=== PATIENT | female | born 1990 | race American Indian/Alaskan Native ===

== ENCOUNTER 2019-08-02 15:50 | Inpatient (IN) | payer SELFPAY ==
[2019-08-02 17:38] LABS: Basophils % (Auto) 0.3 % (0.0-1.8); Eosinophils % (Auto) 0.3 % (0.0-4.3); Hematocrit 32.7 % (30.3-42.9); Hemoglobin 11.2 gm/dl (10.1-14.3); Lymphocytes # (Auto) 1.5 K/mm3 (1.2-5.4); Lymphocytes % (Auto) 15.4 % (13.4-35.0); Mean Corpuscular HGB Conc 34 % (30-34); Mean Corpuscular Volume 88 fl (79-97); Monocytes % (Auto) 10.4 % (0.0-7.3); Platelet Count 202 K/mm3 (140-440); Red Blood Count 3.71 M/mm3 (3.65-5.03); Red Cell Distribution Width 13.7 % (13.2-15.2)
--- NOTE | 2019-08-02 19:28 | Ultrasound Report ---
Obstetric ultrasound limited INDICATION: Pelvic pain and TECHNIQUE: Grayscale and Doppler imaging obtained through the limited IMPRESSION: RAMÓN measures 9.0 cm. Single living intrauterine in a cephalic position. h eart rate is 145 bpm Signer Name: Sathish Cristina MD Signed: 08/02/2019 7:23 PM Workstation Name: [id number]
[2019-08-02] MEDS ORDERED: LACTATED RINGERS 1,000 ML ONE (19:33)
[2019-08-02] MEDS ORDERED: BRETHINE IVP PRN (20:33)
[2019-08-02] MEDS ORDERED: MINERAL OIL PO PRN (20:33)
[2019-08-02] MEDS ORDERED: XYLOCAINE 2% INFILTRATI ONE (20:33)
[2019-08-02] MEDS ORDERED: NARCAN 0.4 MG/1 ML IV PRN (20:33)
[2019-08-02] MEDS ORDERED: SUBLIMAZE IV PRN (20:33)
[2019-08-02] MEDS ORDERED: STADOL IV PRN (20:33)
[2019-08-02] MEDS ORDERED: AMPICILLIN/NS 2 GM/100 ML 2 GM/100 ML BAG IV ONE (20:33)
[2019-08-02] MEDS ORDERED: BRETHINE SUB-Q PRN (20:33)
[2019-08-02] MEDS ORDERED: ZOFRAN IV PRN (20:33)
[2019-08-02] MEDS ORDERED: PITOCin/NS 20 UNIT/1000ML DRIP 20 UNITS/1,000 ML BAG IV SCH (21:00)
[2019-08-02] MEDS: LACTATED RINGERS 1,000 ML IV SCH (21:08)
[2019-08-02] MEDS ORDERED: PITOCin/NS 30 UNIT/500ML 30 UNITS/500 ML BAG IV SCH (22:59)
--- NOTE | 2019-08-02 23:22 | History and Physical Report ---
History of Present Illness Date of examination: 08/02/19 Date of admission: 08/02/19 15:56 Chief complaint: Pt is a 28 year ZEKE 08/03/19 at 39w6d presents with rupture of membranes at 1530 pm- clear. She reports irregular contractions and denies vaginal bleeding. She has had care at [facility] since 28 wks complicated by late entry to care, Hepatitis B surface antigen positive s/p ID consult. She is GBS negative. Past History Past Medical History: other (Hep B Surface Antigen Positive ) Past Surgical History: no surgical history [employer] History: hepatitis B (per HPI ) Social history: no significant social history - Obstetrical History Expected Date of Delivery: 08/03/19 Actual Gestation: 40 Week(s) 0 Day(s) : 3 Para: 2 Hx # Term Pregnancies: 2 Number of Pregnancies: 0 Spontaneous Abortions: 0 Induced : 0 Number of Living Children: 2 Medications and Allergies Allergies Allergy/AdvReac Type Severity Reaction Status Date / Time No Known Allergies Allergy Verified 08/02/19 19:32 Active Meds: Active Medications Butorphanol Tartrate (Stadol) 2 mg IV Q2H PRN PRN Reason: Pain , Severe (7-10) Ephedrine Sulfate (Ephedrine Sulfate) 10 mg IV Q2M PRN PRN Reason: Hypotension Fentanyl (Sublimaze) 100 mcg IV Q2H PRN PRN Reason: Labor Pain Oxytocin/Sodium Chloride (Pitocin/Ns 20 Unit/1000ml Drip) 20 units in 1,000 mls @ 125 mls/hr IV DIRECT MATTHIAS Lactated Ringer's (Lactated Ringers) 1,000 mls @ 125 mls/hr IV DIRECT MATTHIAS Last Admin: 08/02/19 21:08 Dose: 125 mls/hr Documented by: Ampicillin Sodium (Ampicillin/Ns 1 Gm/50 Ml) 1 gm in 50 mls @ 100 mls/hr IV Q4HR MATTHIAS; Protocol Oxytocin/Sodium Chloride (Pitocin/Ns 30 Unit/500ml) 30 units in 500 mls @ 2 mls/hr IV TITR MATTHIAS; Protocol Last Admin: 08/02/19 22:50 Dose: 4 ml/hr, 4 mls/hr Documented by: Mineral Oil (Mineral Oil) 30 ml PO QHS PRN PRN Reason: Constipation Naloxone HCl (Narcan 0.4 Mg/1 Ml) 0.1 mg IV Q2MIN PRN PRN Reason: Res Rate </= 8 or 02 SAT < 92% Ondansetron HCl (Zofran) 4 mg IV Q8H PRN PRN Reason: Nausea And Vomiting Terbutaline Sulfate (Brethine) 0.25 mg SUB-Q ONCE PRN PRN Reason: Hyperstimulation/Hypertonicity Terbutaline Sulfate (Brethine) 0.25 mg IVP ONCE PRN PRN Reason: Hyperstimulation/Hypertonicity Review of Systems All systems: negative - Vital Signs Vital signs: Vital Signs Temp Pulse Resp BP Pulse Ox 97.9 F 125 H 20 132/81 99 08/02/19 16:08 08/02/19 16:08 08/02/19 16:08 08/02/19 16:08 08/02/19 16:08 Temp Pulse Resp BP Pulse Ox 97.9 F 104 H 20 140/73 99 08/02/19 16:08 08/02/19 19:44 08/02/19 16:08 08/02/19 19:44 08/02/19 16:22 - Physical Exam Breasts: Positive: deferred Cardiovascular: Regular rate Lungs: Positive: Clear to auscultation Abdomen: Positive: soft (gravid ) Uterus: Positive: enlarged (gravid ) Extremities: Positive: normal - Obstetrical FHR: auscultation normal Uterine Contraction Monitor Mode: External Cervical Dilatation: 4.5 (per RN ) Uterine Contraction Pattern: Irregular Uterine Tone Measurement Phase: Resting Uterine Contraction Intensity: Moderate Results Result Diagrams: 08/02/19 17:17 Abnormal lab results 08/02/19 Range/Units 17:17 Antelope % (Auto) 10.4 H (0.0-7.3) % Antelope # 1.0 H (0.0-0.8) K/mm3 Seg Neutrophils % 73.6 H (40.0-70.0) % All other labs normal. Assessment and Plan A: IUP at 39w6d SROM Latent labor Hep B Surface Antigen positive GBS negative P: Admit to labor and delivery Routine intrapartum care Avoid scalp electrode if possible Closely monitor maternal and status
[2019-08-03] MEDS ORDERED: PITOCin/NS 30 UNIT/500ML 30 UNITS/500 ML BAG IV SCH
[2019-08-03] MEDS ORDERED: AMPICILLIN/NS 1 GM/50 ML 1 GM/50 ML BAG IV SCH (00:36)
[2019-08-03] MEDS: LACTATED RINGERS 1,000 ML IV SCH (08:51)
[2019-08-03] MEDS ORDERED: AMPICILLIN/NS 2 GM/100 ML 2 GM/100 ML BAG IV SCH (09:00)
--- NOTE | 2019-08-03 09:53 | Event Note ---
Date: 08/03/19 Pt very uncomfortable with contractions. SVE: /-1. Category II tracing. Routine intrapartum care. Closely monitor maternal and status.
[2019-08-03] MEDS ORDERED: XYLOCAINE 2% INFILTRATI ONE ×3 (11:03→11:41)
[2019-08-03] MEDS ORDERED: CYTOTEC ONE (11:10)
[2019-08-03] MEDS ORDERED: METHERGINE IM ONE ×2 (11:10→11:30)
--- NOTE | 2019-08-03 12:04 | Procedure Note ---
OB Delivery Note - Delivery Date of Delivery: 08/03/19 Surgeon: MOUNA DE LA ROSA Estimated blood loss: 500cc - Vaginal Delivery presentation: vertex Delivery position: OA Intrapartum events: PROM->1hr before delivery, meconium, decreased FHT variability, shoulder dystocia, uterine atony Delivery induction: oxytocin Delivery augmentation: pitocin Delivery monitor: external FHT, external uterine Route of delivery: Delivery placenta: spontaneous Delivery cord: 3 umbilical vessels Episiotomy: none Delivery laceration: 2nd degree Delivery repair: vicryl Anesthesia: local Delivery comments: Pt progressed to complete/complete/+2 and pushed to deliver a viable female over intact perineum under IV anesthesia via spontaneous vaginal delivery. Head delivered in CHERYL position. Twenty second shoulder dystocia relieved by Peng position and suprapublic pressure. Shoulders then delivered followed by the remainder of the body. Terminal meconium. placed on maternal abdomen. Cord clamped and cut and handed to NICU in attendance. Cord blood collected. Placenta delivered spontaneously (3VC, intact). Uterus noted to be atonic despite Pitocin infusing. Methergine 0.2 mg IM administered. Uterine tone improved. Vagina and perineum explored. Deep second degree laceration repaired with 3-0 and 2-0 Vicryl in a standard fashion. EBL 500mL. Bladder drained of 300 mL of clear urine at the end of the procedure. - Infant A at 1 minute: 8 at 5 minutes: 9 Infant Gender: Female (3798g (8lb 6oz) @ 1121 am)
[2019-08-03] MEDS ORDERED: SODIUM CHLORIDE FLUSH SYRINGE 10 ML IV NR (14:11)
[2019-08-03] MEDS ORDERED: DERMOPLAST TP PRN (14:11)
[2019-08-03] MEDS ORDERED: PHENERGAN PR PRN (14:11)
[2019-08-03] MEDS ORDERED: LANSINOH TP PRN ×2 (14:11)
[2019-08-03] MEDS ORDERED: NORCO 5/325 PO PRN (14:11)
[2019-08-03] MEDS ORDERED: TYLENOL PO PRN (14:11)
[2019-08-03] MEDS ORDERED: ZOFRAN IV PRN (14:11)
[2019-08-03] MEDS ORDERED: BENADRYL PO PRN (14:11)
[2019-08-03] MEDS ORDERED: TUCKS PAD TP PRN (14:11)
[2019-08-03] MEDS ORDERED: DULCOLAX PR PRN (14:11)
[2019-08-03] MEDS ORDERED: PITOCin/NS 20 UNIT/1000ML DRIP 20 UNITS/1,000 ML BAG IV SCH (14:11)
[2019-08-03] MEDS ORDERED: PHENERGAN PO PRN (14:11)
[2019-08-03] MEDS: IBUPROFEN PO SCH ×2 (16:05→23:28)
[2019-08-03] MEDS ORDERED: MILK OF MAGNESIA PO PRN (22:00)
[2019-08-03] MEDS: FEOSOL PO SCH (23:28)
[2019-08-03] MEDS: COLACE PO SCH (23:28)
[2019-08-04] MEDS: IBUPROFEN PO SCH ×3 (05:49→17:55)
[2019-08-04 07:11] LABS: Hematocrit 28.5 % (30.3-42.9); Hemoglobin 9.6 gm/dl (10.1-14.3)
--- NOTE | 2019-08-04 08:07 | Progress Note ---
Assessment and Plan A/P PPD1 s/p Hep B alert peds ID consult routine PP care Subjective - Subjective Date of service: 08/04/19 Principal diagnosis: s/p Patient reports: appetite normal, voiding normally, pain well controlled, flat us, ambulating normally Dix: doing well Objective - Vital Signs Latest vital signs: Vital Signs Temp Pulse Resp BP BP Pulse Ox 08/04/19 05:49 18 08/04/19 00:28 18 08/04/19 00:00 98.3 F 93 H 18 128/82 100 08/03/19 23:28 18 08/03/19 18:44 18 08/03/19 18:31 98.5 F 89 18 100 08/03/19 17:11 99.8 F H 107 H 18 135/78 98 08/03/19 13:55 99.7 F H 84 18 136/75 100 08/03/19 12:14 98 H 130/60 08/03/19 11:52 107 H 134/77 08/03/19 11:37 102 H 120/56 08/03/19 11:25 113 H 132/59 08/03/19 09:13 114 H 98 08/03/19 09:08 98 H 98 08/03/19 09:03 106 H 98 08/03/19 09:02 98.1 F 107 H 22 141/86 141/86 99 Intake and Output 08/03/19 08/04/19 08/04/19 23:59 07:59 15:59 Intake Total 240 Balance 240 Intake: Oral 240 Other: Total, Intake Amount 240 # Voids Void 1 - Exam Breasts: Present: normal Cardiovascular: Present: Regular rate, Normal S1 Lungs: Present: Clear to auscultation, Normal air movement Abdomen: Present: normal appearance, soft, normal bowel sounds. Absent: dis tention, tenderness, guarding Uterus: Present: normal, firm, fundal height below umbilicus. Absent: bogginess, tenderness Extremities: Present: normal Deep Tendon Reflex Grade: Normal +2 - Labs Labs: Abnormal lab results 08/04/19 Range/Units 06:45 Hgb 9.6 L (10.1-14.3) gm/dl Hct 28.5 L (30.3-42.9) %
[2019-08-04] MEDS: FEOSOL PO SCH ×2 (09:51→22:04)
[2019-08-04] MEDS: COLACE PO SCH ×2 (09:51→22:04)
--- NOTE | 2019-08-04 11:00 | Consultation ---
History of Present Illness - Reason for Consult Consult date: 08/04/19 - History of Present Illness 28 yo F presented at term with rupture of membranes and contractions. Her only care began at 28 weeks and as such had late entry to care. She was GBS negative on arrival. She was otherwise asymptomatic on arrival aside from delivery-related contractions. Denied abdominal pain otherwise. No history of liver issues. She delivered a healthy female baby on 08/03. Afebrile since admission, previously received 8 doses of ampicillin. Hepatitis B surface antigen is positive, other hepatitis labs not yet obtained. Unclear if STIs previously tested given late presentation to pre- care. Received TDaP and MMR dose 1. No cultures obtained for review. Imaging personally reviewed: None obtained. Review of Systems: Bold if positive, otherwise negative General: fevers, chills, rigors HEENT: visual disturbance, diplopia, eye pain Respiratory: cough, sputum, hemoptysis, shortness of breath Cardiovascular: chest pain, syncope Gastrointestinal: nausea, vomiting, diarrhea, abdominal pain Genitourinary: dysuria, hematuria, flank pain Musculoskeletal: neck pain, back pain, joint pain, edema Neurologic: headaches, seizures Hematologic: easy bruising or bleeding Endocrine: night sweats, acute weight loss Skin: rash, jaundice, redness Psychiatric: suicidal, homicidal ideation Past History Past Medical History: No medical history Past Surgical History: No surgical history Social history: no significant social history. denies: smoking, alcohol abuse Family history: no significant family history Medications and Allergies Allergies Allergy/AdvReac Type Severity Reaction Status Date / Time No Known Allergies Allergy Verified 08/02/19 19:32 Home Medications Medication Instructions Recorded Confirmed Last Taken Type Docusate Sodium [Colace] 100 mg PO BID PRN #60 capsule 08/03/19 Unknown Rx Ferrous Sulfate [Feosol 325 MG tab] 325 mg PO BID #60 tablet 08/03/19 Unknown Rx HYDROcodone/APAP 5-325 [Sumner 1 each PO Q6HR PRN #20 tablet 08/03/19 Unknown Rx 5/325] Ibuprofen [Motrin] 800 mg PO Q8HR PRN #30 tablet 08/03/19 Unknown Rx Vitamin 1 tab PO DAILY 08/03/19 08/03/19 2 Days Ago History ~08/01/19 Active Meds: Active Medications Acetaminophen (Tylenol) 650 mg PO Q4H PRN PRN Reason: Pain MILD(1-3)/Fever >100.5/JAY Last Admin: 08/03/19 17:44 Dose: 650 mg Documented by: Acetaminophen/Hydrocodone Bitart (Sumner 5/325) 2 each PO Q6H PRN PRN Reason: Pain, Moderate (4-6) Benzocaine/Menthol (Dermoplast) 1 spray TP PRN PRN PRN Reason: Pain, Moderate (4-6) Last Admin: 08/03/19 17:07 Dose: 1 spray Documented by: Bisacodyl (Dulcolax) 10 mg IN BID PRN PRN Reason: Constipation Diphenhydramine HCl (Benadryl) 25 mg PO Q6H PRN PRN Reason: Itching Diphtheria/Tetanus/Acell Pertussis (Boostrix) 0.5 ml IM .ONCE ONE Stop: 08/04/19 12:05 Docusate Sodium (Colace) 100 mg PO BID [facility] Last Admin: 08/04/19 09:51 Dose: 100 mg Documented by: Ferrous Sulfate (Feosol) 325 mg PO BID [facility] Last Admin: 08/04/19 09:51 Dose: 325 mg Documented by: Oxytocin/Sodium Chloride (Pitocin/Ns 20 Unit/1000ml Drip) 20 units in 1,000 mls @ 250 mls/hr IV DIRECT [facility] Ibuprofen (Ibuprofen) 600 mg PO Q6H [facility] Last Admin: 08/04/19 05:49 Dose: 600 mg Documented by: Magnesium Hydroxide (Milk Of Magnesia) 30 ml PO HS PRN PRN Reason: Constipation Measles/Mumps/Rubella Vaccine Live (M-M-R Ii Vaccine) 0.5 ml SUB-Q .ONCE ONE Stop: 08/04/19 12:05 Multi-Ingredient Ointment (Lansinoh) 1 applic TP PRN PRN PRN Reason: dryness/cracking Ondansetron HCl (Zofran) 4 mg IV Q8H PRN PRN Reason: Nausea And Vomiting Promethazine HCl (Phenergan) 25 mg IN Q6H PRN PRN Reason: Nausea And Vomiting Promethazine HCl (Phenergan) 25 mg PO Q6H PRN PRN Reason: Nausea And Vomiting Witch Claudette/Glycerin (Tucks Pad) 1 each TP PRN PRN PRN Reason: Hemorrhoid/cleansing/soothing Last Admin: 08/03/19 17:07 Dose: 1 each Documented by: Physical Examination - Physical Exam Narrative exam: Physical Exam: Constitutional: Alert, cooperative. No acute distress, lying in bed with baby. Head, Ears, Nose: Normocephalic, atraumatic. External ears, nose normal Eyes: Conjunctivae/corneas clear. No icterus. No ptosis. Neck: Supple, no meningeal signs Oral: dentition fair, no thrush Cardiovascular: S1, S2 normal. Respiratory: Good air entry, clear to auscultation bilaterally GI: Soft, non-tender; bowel sounds normal. No peritoneal signs. Musculoskeletal: No pedal edema, no cyanosis. Skin: No rash or abscess Hem/Lymphatic: No palpable cervical or supraclavicular nodes. No lymphangitis Psych: Mood ok. Affect normal Neurological: Awake, alert, oriented. No gross abnormality - Constitutional Vitals: Vital Signs Temp Pulse Resp BP Pulse Ox 98.5 F 87 20 116/71 100 08/04/19 08:12 08/04/19 08:12 08/04/19 08:12 08/04/19 08:12 08/04/19 08:12 Temperature -Last 24 Hours Temperature 98.5 F Temperature 98.3 F Temperature 98.5 F Temperature 99.8 F Temperature 99.7 F Results - Labs CBC & Chem 7: 08/04/19 06:45 Labs: Abnormal lab results 08/04/19 Range/Units 06:45 Hgb 9.6 L (10.1-14.3) gm/dl Hct 28.5 L (30.3-42.9) % Assessment and Plan Cultures: None A/P: 28 yo F presented at term with rupture of membranes and contractions, found to have Hep B surface antigen + 1. Hepatitis B - unclear chronicity/activity so far. I have ordered a battery of complimentary hepatitis tests in order to determine whether or not she requires treatment. TDF is generally considered safe in , but whether or not it is best to start now or later will depend on liver function results and hepatitis B DNA results. I will also evaluate for hep A and C. Ordered testing for HIV and other STIs as sexual activity is likely how she contracted the hep B in the first place. If not already done, baby should receive HBIg as well. Recs: - ordered HIV - Ordered urine G&C - ordered hepatitis A, C serologies - ordered Hep B DNA - ordered HepBe Ag - These tests will likely take some time prior to returning. No barrier to discharge from ID perspective - will discuss treatment at outpatient office follow up. - baby should receive HBIg if not done already - routine shaheed- hep B vaccinations should be performed. Thank you for the consult, we will continue to follow. MD Michelle Randhawa [facility] M: [phone] O: [phone] F: [phone]
[2019-08-04] MEDS ORDERED: M-M-R II VACCINE SUB-Q ONE (12:04)
[2019-08-04] MEDS ORDERED: BOOSTRIX IM ONE (12:04)
[2019-08-04 13:46] LABS: Alanine Aminotransferase 26 units/L (7-56); Albumin 3.1 g/dL (3.9-5)
[2019-08-04 13:47] LABS: Bilirubin,Direct < 0.2 mg/dL (0-0.2)
[2019-08-04 13:56] LABS: Hepatitis C Virus Antibody Non-Reactive (NonReactive)
[2019-08-05] MEDS: IBUPROFEN PO SCH ×2 (03:41→11:34)
--- NOTE | 2019-08-05 08:19 | Progress Note ---
Assessment and Plan PPD2 s/p Vital signs stable Acute anemia- Ferrous sulfate Hepatitis B positive- appreciate ID consult ID labs not yet processed. Per ID note, no need to delay discharge Discharge to home today Subjective - Subjective Date of service: 08/05/19 Principal diagnosis: s/p Interval history: PPD2 s/p . Hepatitis B labs have been collected per ID order. Patient reports: appetite normal, voiding normally, pain well controlled, ambulating normally Mobile: doing well, nursing well Objective - Vital Signs Latest vital signs: Vital Signs Temp Pulse Resp BP Pulse Ox 08/05/19 03:41 18 08/04/19 23:51 98.2 F 90 20 124/63 98 08/04/19 22:04 18 08/04/19 15:47 99.4 F 94 H 20 124/63 99 Intake and Output 08/04/19 08/05/19 08/05/19 23:59 07:59 15:59 Intake Total 360 Balance 360 Intake: Oral 360 Other: Total, Intake Amount 360 # Voids Void 1 - Exam Breasts: Present: normal Lungs: Present: Normal air movement Abdomen: Present: normal appearance, soft Uterus: Present: normal, firm, fundal height below umbilicus Extremities: Present: normal - Labs Labs: Abnormal lab results 08/04/19 Range/Units 12:41 Total Protein 6.1 L (6.3-8.2) g/dL Albumin 3.1 L (3.9-5) g/dL
--- NOTE | 2019-08-05 08:23 | Discharge Summary ---
Providers - Providers Date of Admission: 08/02/19 15:56 Date of discharge: 08/05/19 Attending physician: MOUNA DE LA ROSA 08/04/19 08:07 Consult to Physician [CONS] Urgent Comment: Consulting Provider: VAIBHAV MONTES DE OCA Physician Instructions: Reason For Exam: HEP B + , day 1 Primary care physician: MOUNA DE LA ROSA Hospitalization Reason for admission: rupture of membranes Delivery: Procedure details: , EBL 500 mL, uterine atony resolved with Methergine and Pitocin. Episiotomy: none Laceration: 2nd degree (deep) Other procedures: none Discharge diagnosis: IUP at term delivered Hospital course: Pt presented with SROM in latent labor. Progressed to of viable term infant. Deep second degree perineal laceration, EBL 500mL. HBsAG positive, ID consulted, labs drawn and pending. Otherwise uncomplicated hospital course. Condition at discharge: Good Disposition: DC-01 TO HOME OR SELFCARE Plan - Discharge Medications Prescriptions: Docusate Sodium [Colace] 100 mg PO BID PRN #60 capsule PRN Reason: Constipation Ferrous Sulfate [Feosol 325 MG tab] 325 mg PO BID #60 tablet Ibuprofen [Motrin] 800 mg PO Q8HR PRN #30 tablet PRN Reason: Pain, Moderate (4-6) HYDROcodone/APAP 5-325 [[place] 5/325] 1 each PO Q6HR PRN #20 tablet PRN Reason: Pain - Provider Discharge Summary Activity: routine, no sex for 6 weeks, no heavy lifting 4 weeks, no strenuous exercise Diet: routine Instructions: routine Additional instructions: [] Smoking cessation referral if applicable(refer to patient education folder for contact #) [] Refer to [facility] Booklet Call your doctor immediately for: * Fever > 100.5 * Heavy vaginal bleeding ( >1 pad per hour) * Severe persistent headache * Shortness of breath * Reddened, hot, painful area to leg or breast * Drainage or odor from incision. * Keep incision clean and dry at all times and follow doctor's instructions regarding bathing/showering - Follow up plan Follow up: MOUNA DE LA ROSA MD [Primary Care Provider] - 14 Days (Call [facility] to schedule an appointment.)
[2019-08-05] MEDS: FEOSOL PO SCH (09:50)
[2019-08-05] MEDS: COLACE PO SCH (09:51)
[2019-08-05 11:07] VITALS: BP 141/76
--- NOTE | 2019-08-05 11:37 | Progress Note ---
Assessment and Plan Cultures: None A/P: 28 yo F presented at term with rupture of membranes and con tractions, found to have Hep B surface antigen + 1. Hepatitis B - unclear chronicity/activity so far. I have ordered a battery of complimentary hepatitis tests in order to determine whether or not she requires treatment. TDF is generally considered safe in , but whether or not it is best to start now or later will depend on liver function results and hepatitis B DNA results. I will also evaluate for hep A and C. Ordered testing for HIV and other STIs as sexual activity is likely how she contracted the hep B in the first place. If not already done, baby should receive HBIg as well. Recs: - ordered HIV - Ordered urine G&C - ordered hepatitis A, C serologies - ordered Hep B DNA - ordered HepBe Ag - These tests will likely take some time prior to returning. No barrier to discharge from ID perspective - Importance of ID follow-up at the office discussed - baby should receive HBIg if not done already - routine shaheed-yayo hep B vaccinations should be performed. Adela Ferreira NP [facility] M: [phone] O:[phone] Subjective Date of service: 08/05/19 Principal diagnosis: s/p Interval history: Patient seen and examined. Sitting up on the side of the bed, Reports not acute distress or generalized weakness. No fevers. Importance of ID follow-up at the office discussed - verbalized understanding. Objective - Exam Narrative Exam: Constitutional: Alert, cooperative. No acute distress. Sitting up on the side of the bed. Head, Ears, Nose: Normocephalic, atraumatic. External ears, nose normal Eyes: Conjunctivae/corneas clear. No icterus. No ptosis. Neck: Supple, no meningeal signs Oral: dentition fair, no thrush Cardiovascular: S1, S2 normal. Respiratory: Good air entry, clear to auscultation bilaterally GI: Soft, non-tender; bowel sounds normal. No peritoneal signs. Musculoskeletal: No pedal edema, no cyanosis. Skin: No rash or abscess Hem/Lymphatic: No palpable cervical or supraclavicular nodes. No lymphangitis Psych: Mood ok. Affect normal Neurological: Awake, alert, oriented. No gross abnormality - Constitutional Vitals: Vital Signs Temp Pulse Resp BP Pulse Ox 99.1 F 96 H 18 141/76 100 08/05/19 08:09 08/05/19 08:09 08/05/19 08:09 08/05/19 08:09 08/05/19 08:09 Temperature -Last 24 Hours Temperature 99.1 F Temperature 98.2 F Temperature 99.4 F - Labs CBC & Chem 7: 08/04/19 06:45 Labs: Abnormal lab results 08/04/19 Range/Units 12:41 Total Protein 6.1 L (6.3-8.2) g/dL Albumin 3.1 L (3.9-5) g/dL
== END 2019-08-05 16:00 | disposition home or self-care (01) | DRG 806 ==
LOC: TRG 15:50 → LD 15:56 → OB 08-03 14:09
PROVIDERS: ADMIT Obstetrics & Gynecology; ATTEND Obstetrics & Gynecology
PROC: 10E0XZZ Delivery of Products of Conception, External Approach (ICD-10-PCS; principal; 2019-08-03)
PROC: 0KQM0ZZ Repair Perineum Muscle, Open Approach (ICD-10-PCS; 2019-08-03)
PROC: 3E033VJ Introduction of Other Hormone into Peripheral Vein, Percutaneous Approach (ICD-10-PCS; 2019-08-03)
DX: O42.02 Full-term premature rupture of membranes, onset of labor within 24 hours of rupture (principal); O98.42 Viral hepatitis complicating childbirth; Z37.0 Single live birth; B19.10 Unspecified viral hepatitis B without hepatic coma; O76 Abnormality in fetal heart rate and rhythm complicating labor and delivery; O66.0 Obstructed labor due to shoulder dystocia; O77.0 Labor and delivery complicated by meconium in amniotic fluid; Z3A.39 39 weeks gestation of pregnancy; O75.89 Other specified complications of labor and delivery; O70.1 Second degree perineal laceration during delivery; O90.81 Anemia of the puerperium; D64.9 Anemia, unspecified
CPT/HCPCS: 36415; 76815; 80076; 85014; 85018; 85025; 86592; 86705; 86706; 86707; 86708; 86709; 86803; 86850; 86900; 86901; 87350; 87517; 87591; G0378; J0290; J2210; J2590; J3010; J7120